=== PATIENT | male | born 1955 | race Caucasian/White ===

== ENCOUNTER 2024-08-12 09:53 | Outpatient (CLI) | payer OTHER | END 2024-08-12 23:59 | disposition home or self-care (01) | LOC: RAD 09:53 | PROVIDERS: ATTEND Chiropractor | DX: M13.80 Other specified arthritis, unspecified site (principal); R06.02 Shortness of breath | CPT/HCPCS: 71046; 73030; 73100; 73501; 73562; 73610 ==

== ENCOUNTER 2024-08-15 09:51 | Outpatient (CLI) | payer OTHER ==
[~2024-08-15] VITALS: Ht 171.4 cm; Wt 63.5 kg
[2024-08-15] MEDS: albuterol 2.5 MG/3 ML nebule NEB ONE (10:47)
[2024-08-15 10:49] VITALS: PULSE 70; RESP 16; O2SAT 97
[2024-08-15 11:01] VITALS: PULSE 73; RESP 16
== END 2024-08-15 23:59 | disposition home or self-care (01) ==
LOC: EDSEX → RT 09:51
PROVIDERS: ATTEND Chiropractor
DX: R91.1 Solitary pulmonary nodule (principal); M13.80 Other specified arthritis, unspecified site
CPT/HCPCS: 94060; 94760